=== PATIENT | female | born 1945 | race Caucasian/White ===

== ENCOUNTER 2019-01-22 15:50 | Emergency (ER) | payer MEDICARE ==
--- NOTE | 2019-01-22 16:28 | ED ---
Dizziness - HPI Summary HPI Summary: Pt is a 73 y/o F presenting to the ED with a chief complaint of dizziness. She states that the past two weeks, she has been feeling intermittently lightheaded , dizzy, and nauseous. She describes the lightheadedness as feeling like she is going to pass out. She reports associated cough, vomiting, diaphoresis, sore throat, voice hoarseness, and fatigue. She's unsure if she's had a fever. She denies abd pain, hematuria, or dysuria. Pt's medications reviewed, allergies noted. - History Of Current Complaint Chief Complaint: EDGeneral Stated Complaint: GENERAL ILLNESS/VOMITING PER PT Time Seen by Provider: 01/22/19 16:11 Hx Obtained From: Patient Onset/Duration: Still Present, Gradually Timing: Hours Severity Initially: Moderate Severity Currently: Moderate Character: Lightheaded Aggravating Factor(s): Nothing Alleviating Factor(s): Nothing Associated Signs And Symptoms: Positive: Nausea, Vomiting, Diaphoresis. Negative: Fever - pt is unsure - Allergies/Home Medications Allergies/Adverse Reactions: Allergies Allergy/AdvReac Type Severity Reaction Status Date / Time No Known Allergies Allergy Verified 01/22/19 15:54 Home Medications: Home Medications Carvedilol TAB NF [Coreg TAB NF] 12.5 mg PO DAILY 01/22/19 [History Confirmed ] Losartan/Hydrochlorothiazide [Losartan-Hctz 100-12.5 mg Tab] 1 each PO DAILY [History Confirmed 01/22/19] Simvastatin TAB(NF) [Zocor(NF)] 20 mg PO QPM 01/22/19 [History Confirmed ] amLODIPine TAB* [Norvasc 5 mg TAB*] 10 mg PO DAILY 01/22/19 [History Confirmed 01/22/19] PMH/Surg Hx/FS Hx/Imm Hx Previously Healthy: Yes Endocrine/Hematology History: Reports: Hx Diabetes Cardiovascular History: Reports: Hx Hypertension - Surgical History Surgical History: Yes Surgery Procedure, Year, and Place: hysterectomy, breast CA removal (remission 7yrs), ganglion cyst removal on wrist Infectious Disease History: No Infectious Disease History: Denies: Traveled Outside the [place] in Last 30 Days - Family History Known Family History: Positive: Unknown - pt states "I have no idea" - Social History Alcohol Use: Weekly Hx Substance Use: No Substance Use Type: Reports: None Hx Tobacco Use: Yes Smoking Status (MU): Current Every Day Smoker - smoked 40 yrs Type: Cigarettes Review of Systems Positive: Fatigue, Skin Diaphoresis, Other - voice hoarseness. Negative: Fever - pt unsure Positive: Sore Throat Positive: Cough Positive: Vomiting, Nausea. Negative: Abdominal Pain Negative: dysuria, hematuria Neurological: Other - dizziness, lightheadedness All Other Systems Reviewed And Are Negative: Yes Physical Exam - Summary Physical Exam Summary: Constitutional: Well-developed, Well-nourished, Alert. (-) Distressed Skin: Warm, Dry HENT: Normocephalic; Atraumatic Eyes: Conjunctiva normal Neck: Musculoskeletal ROM normal neck. (-) JVD, (-) Stridor, (-) Tracheal deviation Cardio: Rhythm regular, rate normal, Heart sounds normal; Intact distal pulses; The pedal pulses are 2+ and symmetric. Radial pulses are 2+ and symmetric. (-) Murmur Pulmonary/Chest wall: Effort normal. Mild expiratory wheezes in lower lung bell bilaterally, (-) Respiratory distress Abd: Soft, (-) tenderness, (-) Distension, (-) Guarding, (-) Rebound Musculoskeletal: (-) Edema Lymph: (-) Cervical adenopathy Neuro: Alert, Oriented x3 Psych: Mood and affect Normal Triage Information Reviewed: Yes Vital Signs On Initial Exam: Initial Vitals Temp Pulse Resp BP Pulse Ox 96.7 F 72 16 143/97 97 01/22/19 15:51 01/22/19 15:51 01/22/19 15:51 01/22/19 15:51 01/22/19 15:51 Vital Signs Reviewed: Yes Diagnostics - Vital Signs Vital Signs Temp Pulse Resp BP Pulse Ox 01/22/19 15:51 96.7 F 72 16 143/97 97 - Laboratory Result Diagrams: 01/22/19 16:38 01/22/19 16:38 Lab Statement: Any lab studies that have been ordered have been reviewed, and results considered in the medical decision making process. - Radiology CXR Radiology Interpretation Completed By: Radiologist Summary of Radiographic Findings: Findings consistent with a left suprahilar mass. CT of the chest with IV. contrast is suggested. ED physician has reviewed this report. - CT Chest CT CT Interpretation Completed By: Radiologist Summary of CT Findings: 1. There is significant mediastinal lymphadenopathy and left hilar. lymphadenopathy with the largest lymph node in the AP window measuring 2.7 cm. short axis suspicious for malignant lymphadenopathy until proven otherwise. 2. Contiguous with mediastinal and left hilar lymphadenopathy is a masslike. consolidation in the left upper lobe abutting the left mediastinal border with. this region of abnormality measuring 8.8 x 2.0 x 5.3 cm suspicious for left. upper lobe malignancy until proven otherwise. 3. The mass lesions and lymphadenopathy may be further evaluated by sampling. via bronchoscopy or further evaluation with nuclear medicine PET imaging. 4. There is a small hiatal hernia. 5. There is likely multinodular goiter of the thyroid gland with the largest. heterogeneous nodule measuring 5 cm. May be more accurately assessed with. thyroid gland ultrasound. 6. There is a heterogeneous mass in the left adrenal gland measuring 4.1 x 2.9. cm, cannot exclude adrenal metastasis. 7. There is asymmetric skin thickening involving the right breast and surgical. clips and scarring in the right breast. Breast pathology is more accurately. assessed with mammography. Re-Evaluation - Re-Evaluation First Eval Re-Evaluation Time: 18:30 Change: Improved Comment: Pt was informed of her diagnosis. Her daughter will be called to discuss the next steps. Second Eval Re-Evaluation Time: 19:00 Change: Improved Comment: Pt's daughter requested a brain CT to rule out if the cancer spread to her brain. Third Eval Re-Evaluation Time: 19:45 Change: Unchanged Comment: Unoffical review of brain CT found one possible intercranial mass. Pt advised to stay until after offical report, pt declined and will be discharged home. Dizzy Course/Dx - Course Course Of Treatment: Patient is here with cough, vomiting, chills, laryngitis over the past 2 weeks. Patient has an extensive smoking history and history of breast cancer. Patient a chest x-ray which showed a left mediastinal mass. Patient is CT scan of her chest which showed a left upper lung lobe mass with adenopathy in the mediastinum. Patient also had possible mass in her adrenal gland. This likely represents new diagnosed lung cancer. Patient has had some vomiting as well as a CT scan for her head which showed multiple metastatic masses. Patient had no evidence of herniation and is overall well-appearing. Dr. Leyva was called and will follow-up with patient on Friday at 5 PM. - Diagnoses Provider Diagnoses: Lung mass, Nausea, Brain mass - Provider Notifications Discussed Care Of Patient With: Basilio Leyva Time Discussed With Above Provider: 18:55 Instructed by Provider To: Have Pt Call For Appt. - Dr. Leyva, Oncology, stated that the pt could be discharged home. He requested an appointment with the pt in his main office at 5p Friday01/26/19. Discharge ED - Sign-Out/Discharge Documenting (check all that apply): Patient Departure - discharge Patient Received Moderate/Deep Sedation with Procedure: No - Discharge Plan Condition: Stable Disposition: HOME Prescriptions: Acetaminophen with Codeine [Acetaminophen-Cod #3 Tablet] 1 each PO Q8HR #20 tablet MDD 3 tablets Benzonatate CAP* [Tessalon 100 MG CAP*] 100 mg PO TID #20 cap Ondansetron ODT TAB* [Zofran 4 MG Odt TAB*] 4 mg PO Q8H PRN #20 tab.odt PRN Reason: Vomiting Patient Education Materials: Lung Cancer (DC) Forms: *Work Release Referrals: Delmer Garay MD [Primary Care Provider] - 2 Days Basilio Leyva MD [Medical Doctor] - 01/26/19 5:00 pm Additional Instructions: PLEASE RETURN TO THE EMERGENCY DEPARTMENT FOR ANY NEW OR WORSENING SYMPTOMS. TAKE THE PRESCRIBED MEDICATIONS DIRECTED. FOLLOW UP WITH YOUR PRIMARY CARE PHYSICIAN IN 1-3 DAYS AND FOLLOW UP WITH DR. LEYVA, ONCOLOGY, AT [facility] Friday01/26/19. - Billing Disposition and Condition Condition: STABLE Disposition: Home - Attestation Statements Document Initiated by Emma: Yes Documenting Scribe: Amilcar Reid Provider For Whom Emma is Documenting (Include Credential): Josemanuel Wong MD. Scribe Attestation: Meena Lee Marco DiSanto, scribed for Josemanuel Wong MD. on 01/22/19 at 1999. Scribe Documentation Reviewed: Yes Provider Attestation: The documentation as recorded by the scribe, Amilcar Reid accurately reflects the service I personally performed and the decisions made by Josemanuel hyatt MD. Status of Scribe Document: Viewed
[2019-01-22 16:47] LABS: ABS Eosinophils 0.1 10^3/ul (0-0.6); ABS Lymphocytes 0.9 10^3/ul (1.0-4.8); ABS Monocytes 0.6 10^3/ul (0-0.8); ABS Neutrophils 5.3 10^3/ul (1.5-7.7); Eosinophil % 1.2 %; Hematocrit 40 % (35-47); Hemoglobin 13.8 g/dL (12.0-16.0); Lymphocyte % 12.9 %; Mean Corpuscular HGB Conc 34 g/dL (31-36); Mean Corpuscular Hemoglobin 32 pg (27-31); Mean Corpuscular Volume 93 fL (80-97); Mean Platelet Volume 8.8 fL (7.4-10.4); Platelet Count 256 10^3/uL (150-450); Red Blood Count 4.33 10^6 /uL (3.70-4.87); Red Cell Distribution Width 12 % (10-15); White Blood Count 6.9 10^3/uL (3.5-10.8)
[2019-01-22 17:05] LABS: Albumin 3.7 g/dL (3.2-5.2); Albumin/Globulin Ratio 1.2 (1-3); BUN/Creatinine Ratio 12.1 (8-20); Calcium 9.5 mg/dL (8.6-10.3); EGFR African American 73.7 (>60); EGFR Non-African American 60.9 (>60); Globulin 3.2 g/dL (2-4); Potassium 3.4 mmol/L (3.5-5.0); Total Bilirubin 0.3 mg/dL (0.2-1.0); Total Protein 6.9 g/dL (6.4-8.9)
[2019-01-22] MEDS ORDERED: Iodixanol* (CONTRAST) 320 MG/ML 100 ML SDV IV ONE (18:01)
[2019-01-22 19:57] VITALS: BP 157/80
== END 2019-01-22 19:57 | disposition home or self-care (01) ==
LOC: ED 15:50
DX: R91.1 Solitary pulmonary nodule (principal); R11.0 Nausea; G93.9 Disorder of brain, unspecified; Z85.3 Personal history of malignant neoplasm of breast; E11.9 Type 2 diabetes mellitus without complications; I10 Essential (primary) hypertension; F17.210 Nicotine dependence, cigarettes, uncomplicated; Z79.899 Other long term (current) drug therapy
CPT/HCPCS: 36415; 70450; 71046; 71260; 80053; 83036; 83690; 84484; 85025; 86618; 99283; Q9967

== ENCOUNTER → 2019-02-03 | Day surgery (SDC) | payer MEDICARE ==
[~2019-02-03] MED LIST: Benzocaine/Butamben/Tetracain (CETACAINE - SINGLE USE) 5 gm TOPICAL ONE; Buffered Lidocaine 1% SYRIN* 1 ML/SYRINGE INTRADERM ONE; Dextrose 50% VIAL 50 ml IV PUSH PRN; Famotidine IV* 10 MG/ML 2 ML (20 mg) IV ONE; Famotidine IV* 10 MG/ML 2 ML (20 mg) ONE; Insulin LISPRO* 1 UNITS UNIT SUBCUT ONE; Insulin REGULAR(*) 1 UNITS UNIT ONE; Lactated Ringers 1000 ML Bag* 1,000 ML IV SCH; Lidocaine 2% PF * 5 ML VIAL ONE; Ondansetron INJ* 2 MG/ML VIAL ONE; Rocuronium* 10 MG/ML VIAL ONE; Succinylcholine* 20 MG/ML 10 ML VIAL ONE; Sugammadex * 500 MG/5 ML VIAL IV PUSH ONE
[2019-02-03 14:00] LABS: BUN/Creatinine Ratio 44.1 (8-20); Calcium 8.5 mg/dL (8.6-10.3); EGFR African American 71.9 (>60); EGFR Non-African American 59.4 (>60); Potassium 4.2 mmol/L (3.5-5.0)
--- NOTE | 2019-02-03 15:16 | BRIEFOPN ---
Brief Operative/Procedure Note - Operation Details Pre-Op Diagnosis: Lung mass, lymphadenopathy Post-Op Diagnosis: Lung cancer Procedures: Bronchoscopy/EBUS Surgeon(s)/Proceduralists: ines Wallace Anesthesia: General anesthesia Estimated Blood Loss: None Findings: Endobronchial lesion on left side, lymphadenopathy. R4 and station 7 were sampled and CLIFF suggestive of malignancy Specimen(s)/Culture(s) Description: FNA sent for cytology and air-dry smears sent with cytology actuarial technician for further stains Complications: None
--- NOTE | 2019-02-03 15:44 | PRO ---
BRONCHOSCOPY REPORT: DATE OF PROCEDURE: 02/03/19 - [facility] PREPROCEDURAL DIAGNOSES: 1. Lung mass. 2. Mediastinal and hilar nodes. 3. Brain lesions. POSTPROCEDURAL DIAGNOSIS: Lung cancer. ANESTHESIA: General anesthesia. ANESTHESIOLOGIST: Dr. Leo. DESCRIPTION OF PROCEDURE: Informed consent was obtained from the patient prior to the procedure after all the risks and benefits were thoroughly explained. The patient recently was in the emergency room for evaluation of dizziness, was found to have brain lesions. She was started on dexamethasone. The patient had supraclavicular lymph node biopsy through ultrasound guidance, which was nondiagnostic. Appropriate time-out was agreed on by attending staff prior to the procedure. The patient was intubated with size 8.5 endotracheal tube. A flexible Olympus bronchoscope was inserted through ET tube for airway inspection. Thick secretions were noted in the trachea and bronchi and were suctioned out. No endobronchial lesions noted on the right side. All the airways were patent. The patient noted to have narrowing of the left mainstem bronchus with mucosal irregularity. The patient with narrowing from extrinsic compression. No obvious endobronchial lesions were noted; however, there was definitely mucosal irregularity leading up from mainstem bronchus on the left side to left upper lobe bronchi. Area was bleeding with minimal suction. Bronchoscope was then withdrawn and EBUS bronchoscope was inserted. Station R4 was enlarged and was accessed with three passes. Rapid on-site evaluation revealed malignant cells. Station 7 was then accessed with two passes. Rapid on-site evaluation revealed malignant cells. Rest of the specimen was placed in CytoLyt. The patient tolerated the procedure well. The patient was extubated and seen in Recovery in optimal condition. [id number]/[facility] #: [id number] [facility]
[2019-02-03 15:59] VITALS: BP 145/74
== END | disposition home or self-care (01) ==
LOC: OR 10:59
PROVIDERS: ATTEND Internal Medicine
DX: C34.92 Malignant neoplasm of unspecified part of left bronchus or lung (principal); C77.1 Secondary and unspecified malignant neoplasm of intrathoracic lymph nodes; C79.31 Secondary malignant neoplasm of brain; Z72.0 Tobacco use; E11.9 Type 2 diabetes mellitus without complications; Z79.84 Long term (current) use of oral hypoglycemic drugs; Z85.3 Personal history of malignant neoplasm of breast; Z85.41 Personal history of malignant neoplasm of cervix uteri; I10 Essential (primary) hypertension; E78.5 Hyperlipidemia, unspecified
CPT/HCPCS: 36415; 80048; 88172; 88173; 88305; 88341; 88342; 88360; J0330; J1815; J2405

== ENCOUNTER 2019-02-18 03:21 | Inpatient (IN) | payer MEDICARE ==
--- OUTSIDE RECORDS SUMMARY | 2019-02-18 03:48 | XMS REPORT | Continuity of Care Document ---
:1945 External Reference #:[id number] Author Name Olesya Wallace MD (transmitted by agent of provider Akiko Joseph) Address [address], [address] [place] [address] Care Team Providers Name Role Phone Basilio Leyva M.D. - Hematology & Care Team Information Patient Educator [phone] Oncology Problems Description No Information Available Social History Type Date Description Comments Sex Unknown Tobacco Use Start: Unknown Patient is a current cigarette smoker, smokes every day Tobacco Use Start: Unknown currently smokes 1/2 Pack Daily to 1 pack Cigarette Use Pack Years - 40 on & off Smoking Status Reviewed: 01/28/19 currently smokes 1/2 Pack Daily to 1 pack Tobacco Use Start: Unknown Patient is a current smoker, smokes every day Allergies, Adverse Reactions, Alerts Active Allergies Reaction Severity Comments Date None 01/28/2019 Medications Active Medications SIG Qnty Indications Ordering Provider Date Acetaminophen-Codeine Unknown #3 300-30mg Tablets Benzonatate Take One Capsule Unknown 100mg 3 Times A Day as Capsules Needed For Cough Ondansetron Unknown 4mg Tablets Dispers Simvastatin Take 1 Tablet By Unknown 20mg Tablets Mouth Every Day In The Evening Losartan Take 1 Tablet By Unknown Potassium/Hydrochlorot Mouth Every Day hiazide 100-12.5mg Tablets Carvedilol Take 1 Tablet By Unknown 12.5mg Tablets Mouth Twice A Day With Food Amlodipine Besylate Take 1 Tablet By Unknown 10mg Mouth Every Day Tablets Immunizations Description No Information Available Vital Signs Date Vital Result Comment 01/28/2019 11:02am Height 62 inches 5'2" Weight 179.00 lb Heart Rate 80 /min BP Systolic Sitting 130 mmHg BP Diastolic Sitting 86 mmHg O2 % BldC Oximetry 97 % BMI (Body Mass Index) 32.7 kg/m2 Results Description No Information Available Procedures Description No Information Available Medical Devices Description No Information Available Encounters Type Date Location Provider Dx Diagnosis Office Visit 01/28/2019 [facility] Tab[facility] Other disorders 11:30a [facility] F17.210 Nicotine dependence, cigarettes, uncomplicated R59.0 Localized enlarged lymph nodes Assessments Date Code Description Provider 01/28/2019 [facility] Other disorders of lung Olesya Wallace MD 01/28/2019 F17.210 Nicotine dependence, cigarettes, uncomplicated Olesya Wallace MD 01/28/2019 R59.0 Localized enlarged lymph nodes Olesya Wallace MD Plan of Treatment Future Appointment(s):01/29/2019 11:00 am - Olesya Wallace MD at [facility]01/28/2019 - Olesya Wallace MDJ98.4 Other disorders of lungF17.210 Nicotine dependence, cigarettes, [id number] Localized enlarged lymph nodesNew [place]rays:[place] [id number], Ordered : 01/28/19US Soft Tissue Head Or Neck, Ordered: 01/28/19 Functional Status Description No Information Available Mental Status Description No Information Available Referrals Description No Information Available
[2019-02-18] MEDS ORDERED: NS 0.9% 1000 ML** 1,000 ML IV ONE (03:54)
[2019-02-18 04:32] LABS: INR 1.39 (0.82-1.09)
[2019-02-18 04:38] LABS: Hematocrit 32 % (35-47); Hemoglobin 10.8 g/dL (12.0-16.0); Mean Corpuscular HGB Conc 34 g/dL (31-36); Mean Corpuscular Hemoglobin 31 pg (27-31); Mean Corpuscular Volume 92 fL (80-97); Red Blood Count 3.47 10^6 /uL (3.70-4.87); Red Cell Distribution Width 13 % (10-15); White Blood Count 0.1 10^3/uL (3.5-10.8)
[2019-02-18 04:40] LABS: ALT 16 U/L (7-52); AST 15 U/L (13-39); Albumin 2.6 g/dL (3.2-5.2); Albumin/Globulin Ratio 1.2 (1-3); Alkaline Phosphatase 37 U/L (34-104); Anion Gap 6 mmol/L (2-11); BUN/Creatinine Ratio 38.8 (8-20); Blood Urea Nitrogen 31 mg/dL (6-24); C Reactive Protein 314.39 mg/L (<8.01); CO2 Carbon Dioxide 20 mmol/L (22-32); Calcium 7.4 mg/dL (8.6-10.3); Chloride 107 mmol/L (101-111); EGFR African American 85.6 (>60); EGFR Non-African American 70.7 (>60); Globulin 2.1 g/dL (2-4); Glucose 97 mg/dL (70-100); Sodium 133 mmol/L (135-145); Total Protein 4.7 g/dL (6.4-8.9)
[2019-02-18 04:46] LABS: Troponin I 0.04 ng/mL (<0.04)
[2019-02-18 05:12] LABS: TSH (Thyroid Stimulating Horm) 0.02 mcIU/mL (0.34-5.60)
--- NOTE | 2019-02-18 05:43 | ED ---
Neurological HPI - HPI Summary HPI Summary: Pt is a 73 y/o F presenting to the ED for a chief complaint of generalized weakness. Pts daughter is a nurse and was concerned about pts generalized weakness and possible pneumonia after having a fever of 101 F that began . Daughter also reports that the patient had a wet cough. However, the patient denies this. The pt started chemotherapy and radiation therapy on for a diagnosis of brain and lung cancer made on 01/22/19. Pts daughter states she has weakness since 02/13/19 after falling after which the pt could not go from a sitting to a standing position without help and could walk 20-30 ft with help. Pts daughter states pt has diarrhea, difficulty swallowing, difficulty ambulating, pitting edema in the left lower extremity, sleeping 20 hrs a day. On 02/17/19, pt could not be in sitting position. Pt denies nausea, vomiting, or abdominal pain. Pt has a PMHx of Type II diabetes mellitus. Pt denies taking any medications for her symptoms. - History of Current Complaint Chief Complaint: EDWeakness Stated Complaint: WEAKNESS PER EMSE Time Seen by Provider: 02/18/19 03:23 Hx Obtained From: Patient, Family/Md Ophthalmologist - Daughter Onset/Duration: Sudden Onset - As per pt's daughter, Started days ago, Still Present Timing: Sudden Onset Onset Severity: Moderate Current Severity: Moderate Neurological Deficit Location: Generalized Pain Intensity: 0 Pain Scale Used: 0-10 Numeric Aggravating: Nothing Alleviating: Nothing Associated Signs and Symptoms: Positive: Weakness - generalized, Fever - 101 F, in vitals, 99.4 F, Diarrhea. Negative: Pain - Negative abdominal pain, Nausea/ Vomiting Related Hx: Recent Illness - Lung and brain cancer diagnosed 01/22/19. - Allergy/Home Medications Allergies/Adverse Reactions: Allergies Allergy/AdvReac Type Severity Reaction Status Date / Time No Known Allergies Allergy Verified 02/18/19 03:56 Home Medications: Home Medications Insulin Glargine,Hum.rec.anlog [Lantus Solostar 5x3 ML PENS] 20 units SUBCUT BEDTIME 02/18/19 [History Confirmed 02/18/19] PMH/Surg Hx/FS Hx/Imm Hx Previously Healthy: Yes Endocrine/Hematology History: Reports: Hx Diabetes - Type II Cardiovascular History: Reports: Hx Hypertension Denies: Hx Pacemaker/ICD Sensory History: Reports: Hx Contacts or Glasses - glasses Denies: Hx Hearing Aid Opthamlomology History: Reports: Hx Contacts or Glasses - glasses Neurological History: Reports: Hx Headaches Psychiatric History: Denies: Hx Panic Disorder - Cancer History Cancer Type, Location and Year: breast. Lung and brain cancer diagnosed on . Date and Location of Last Treatment: Chemotherapy and radiation therapy on 02/10. Hx Chemotherapy: Yes - 02/10/19 Hx Radiation Therapy: Yes - 02/10/19 - Surgical History Surgery Procedure, Year, and Place: hysterectomy, breast CA removal (remission 7yrs), ganglion cyst removal on wrist Hx Anesthesia Reactions: No Infectious Disease History: No Infectious Disease History: Denies: Traveled Outside the [place] in Last 30 Days - Family History Known Family History: Negative: Diabetes - Social History Alcohol Use: Weekly Alcohol Amount: couple glasses a day Hx Substance Use: No Substance Use Type: Reports: None Hx Tobacco Use: Yes Smoking Status (MU): Current Every Day Smoker Type: Cigarettes Amount Used/How Often: 1/2ppd 50 years on and off Review of Systems - ROS Summary Review of Systems Summary: Insulin Glargine,Hum.rec.anlog [Lantus Solostar 5x3 ML PENS] 20 units SUBCUT BEDTIME 02/18/19 [History Confirmed 02/18/19] Constitutional: Other - generalized weakness and sleeping 20 hrs daily Positive: Fever - 101 F, in vitals, 99.4 F ENT: Other - positive - difficulty swallowing Positive: Cough Positive: Diarrhea. Negative: Abdominal Pain, Vomiting, Nausea Positive: Decreased ROM - Difficulty ambulating, per daughter, Edema - Pitting edema in LLE, per daughter Positive: Other - Sleeps 20 hrs a day All Other Systems Reviewed And Are Negative: Yes Physical Exam - Summary Physical Exam Summary: General: Well-developed, Well-nourished FEMALE No acute distress. HEENT: Normocephalic, Atraumatic. Eyes: Conjuctiva normal, PERRL. Ears: TMs within normal limits. Nares: (-) discharge, (-) erythema. Oropharynx: Clear, mucous membranes moist, (-) exudates. Neck: Soft, FROM, (-) lymphadenopathy, (-) thyromegaly, (-) JVD. Cardiovascular: Normal sinus rhythm, (-) murmur. Lungs: (-) wheezes, (-) rales. Right lower lobe rhonchi. Abdomen: Soft, non-tender, non-distended, (-) organomegaly, normal bowel sounds. Back: (-) CVA tenderness Extremities: No edema. Skin: Warm, dry, (-) rash. Neuro: Alert and oriented x3, no focal deficits. Psychiatric: Mood normal, affect normal. Triage Information Reviewed: Yes Vital Signs On Initial Exam: Initial Vitals Temp Pulse Resp BP Pulse Ox 99.4 F 102 17 146/79 95 02/18/19 03:31 02/18/19 03:31 02/18/19 03:31 02/18/19 03:31 02/18/19 03:31 Vital Signs Reviewed: Yes Diagnostics - Vital Signs Vital Signs Temp Pulse Resp BP Pulse Ox 02/18/19 04:34 90 24 135/66 95 02/18/19 04:04 97 17 128/72 94 02/18/19 04:00 96 24 94 02/18/19 03:34 16 146/79 02/18/19 03:31 99.4 F 102 17 146/79 95 - Laboratory Lab Results: Lab Results 02/18/19 02/18/19 02/18/19 Range/Units 04:14 04:14 04:14 WBC 0.1 L (3.5-10.8) 10^3/uL RBC 3.47 L (3.70-4.87) 10^6 /uL Hgb 10.8 L (12.0-16.0) g/dL Hct 32 L (35-47) % MCV 92 (80-97) fL MCH 31 (27-31) pg MCHC 34 (31-36) g/dL RDW 13 (10-15) % Plt Count Pending MPV Pending Neut % (Auto) Pending Lymph % (Auto) Pending [place] % (Auto) Pending Eos % (Auto) Pending Baso % (Auto) Pending Absolute Neuts (auto) Pending Absolute Lymphs (auto) Pending Absolute Monos (auto) Pending Absolute Eos (auto) Pending Absolute Basos (auto) Pending Absolute Nucleated RBC Pending Nucleated RBC % Pending INR (Anticoag Therapy) 1.39 H (0.82-1.09) Sodium 133 L (135-145) mmol/L Potassium 4.0 (3.5-5.0) mmol/L Chloride 107 (101-111) mmol/L Carbon Dioxide 20 L (22-32) mmol/L Anion Gap 6 (2-11) mmol/L BUN 31 H (6-24) mg/dL Creatinine 0.80 (0.51-0.95) mg/dL Est GFR ( Amer) 85.6 (>60) Est GFR (Non-Af Amer) 70.7 (>60) BUN/Creatinine Ratio 38.8 H (8-20) Glucose 97 (70-100) mg/dL Lactic Acid (0.5-2.0) mmol/L Calcium 7.4 L (8.6-10.3) mg/dL Magnesium 2.0 (1.9-2.7) mg/dL Total Bilirubin 0.40 (0.2-1.0) mg/dL AST 15 (13-39) U/L ALT 16 (7-52) U/L Alkaline Phosphatase 37 (34-104) U/L Troponin I 0.04 H* (<0.04) ng/mL C-Reactive Protein 314.39 H (<8.01) mg/L Total Protein 4.7 L (6.4-8.9) g/dL Albumin 2.6 L (3.2-5.2) g/dL Globulin 2.1 (2-4) g/dL Albumin/Globulin Ratio 1.2 (1-3) TSH 0.02 L (0.34-5.60) mcIU/mL 02/18/19 Range/Units 04:14 WBC (3.5-10.8) 10^3/uL RBC (3.70-4.87) 10^6 /uL Hgb (12.0-16.0) g/dL Hct (35-47) % MCV (80-97) fL MCH (27-31) pg MCHC (31-36) g/dL RDW (10-15) % Plt Count MPV Neut % (Auto) Lymph % (Auto) [place] % (Auto) Eos % (Auto) Baso % (Auto) Absolute Neuts (auto) Absolute Lymphs (auto) Absolute Monos (auto) Absolute Eos (auto) Absolute Basos (auto) Absolute Nucleated RBC Nucleated RBC % INR (Anticoag Therapy) (0.82-1.09) Sodium (135-145) mmol/L Potassium (3.5-5.0) mmol/L Chloride (101-111) mmol/L Carbon Dioxide (22-32) mmol/L Anion Gap (2-11) mmol/L BUN (6-24) mg/dL Creatinine (0.51-0.95) mg/dL Est GFR ( Amer) (>60) Est GFR (Non-Af Amer) (>60) BUN/Creatinine Ratio (8-20) Glucose (70-100) mg/dL Lactic Acid 0.9 (0.5-2.0) mmol/L Calcium (8.6-10.3) mg/dL Magnesium (1.9-2.7) mg/dL Total Bilirubin (0.2-1.0) mg/dL AST (13-39) U/L ALT (7-52) U/L Alkaline Phosphatase (34-104) U/L Troponin I (<0.04) ng/mL C-Reactive Protein (<8.01) mg/L Total Protein (6.4-8.9) g/dL Albumin (3.2-5.2) g/dL Globulin (2-4) g/dL Albumin/Globulin Ratio (1-3) TSH (0.34-5.60) mcIU/mL Result Diagrams: 02/18/19 15:43 02/18/19 13:57 Lab Statement: Any lab studies that have been ordered have been reviewed, and results considered in the medical decision making process. - Radiology CXR Radiology Interpretation Completed By: ED Physician Summary of Radiographic Findings: Chest x-ray impression: negative. Reviewed by ED physician, pending official radiology report. Chest Radiology Interpretation Completed By: ED Physician Summary of Radiographic Findings: Chest x-ray impression: negative. Reviewed by ED physician, pending official radiology report. - EKG 0402 Cardiac Rate: NL - rate of 96 BPM EKG Rhythm: Sinus Rhythm Summary of EKG Findings: EKG showed NSR with rate of 96 BPM, no STEMI. ED physician has reviewed and interpreted this EKG. Course/Dx - Course Course Of Treatment: Pt is a 73 y/o F presenting to the ED for a chief complaint of generalized weakness. Pts daughter is a nurse and was concerned about pts generalized weakness and possible pneumonia after having a fever of 101 F that began 02/17/19. Daughter also reports that the patient had a wet cough. However, the patient denies this. The pt started chemotherapy and radiation therapy on 02/10/19 for a diagnosis of brain and lung cancer made on 01/22/19. Pts daughter states she has weakness since 02/13/19 after falling after which the pt could not go from a sitting to a standing position without help and could walk 20-30 ft with help. Pts daughter states pt has diarrhea, difficulty swallowing, difficulty ambulating, pitting edema in the left lower extremity, sleeping 20 hrs a day. On 02/17/19, pt could not be in sitting position. Pt denies nausea, vomiting, or abdominal pain. Pt has a PMHx of Type II diabetes mellitus. Pt denies taking any medications for her symptoms. Laboratory abnormal findings: WBC 0.1, RBC 3.47, Hbg 10.8, Hct 32, INR 1.39, sodium 133, carbon dioxide 20, BUN 31, BUN/Creatinine Ratio 38.8, calcium 7.4, troponin I 0.04, c-reactive protein 314.39, total protein 4.7, albumin 2.6, and TSH 0.02. Chest x-ray, negative. Reviewed by ED physician pending official radiology report. EKG at 04:02 reveals 96 BPM with sinus rhythm, no STEMI. Reviewed and interpreted by Dr. Jama. At 05:26, spoke to Dr. Starr who will be admitting the pt with a diagnosis of weakness, elevated troponin, and neutropenia. - Diagnoses Provider Diagnoses: Weakness, Neutropenia, Elevated troponin - Physician Notifications Discussed Care Of Patient With: Gisella Starr Time Discussed With Above Provider: 05:26 Instructed by Provider To: Other - At 05:26, spoke to Dr. Starr who will be admitting the pt Discharge ED - Sign-Out/Discharge Documenting (check all that apply): Patient Departure - Admit Patient Received Moderate/Deep Sedation with Procedure: No - Discharge Plan Condition: Stable Disposition: ADMITTED TO [facility] - Billing Disposition and Condition Condition: STABLE Disposition: Admitted to [facility] - Attestation Statements Document Initiated by Scribe: Yes Documenting Scribe: Scottie Hankins Provider For Whom Scribe is Documenting (Include Credential): Amita Jama MD. Scribe Attestation: I, Scottie Hankins, scribed for Amita Jama MD. on 02/19/19 at 0037. Scribe Documentation Reviewed: Yes Provider Attestation: The documentation as recorded by the scribe, Scottie Hankins accurately reflects the service I personally performed and the decisions made by me, Amita Jama MD. Status of Scribe Document: Viewed
[2019-02-18 05:55] LABS: Urine Appearance Clear; Urine Bacteria Absent (Absent); Urine Bilirubin Negative (Negative); Urine Blood 2+ (Negative); Urine Color Amber; Urine Glucose Negative (Negative); Urine Ketones Negative (Negative); Urine Nitrite Negative (Negative); Urine Protein 2+(100 mg/dL) (Negative); Urine Red Blood Cell Trace(0-2/hpf) (Absent); Urine Specific Gravity 1.025 (1.010-1.030); Urine Squamous Epithelial Cell Present (Absent); Urine Urobilinogen Negative (Negative); Urine White Blood Cell Absent (Absent)
[2019-02-18 06:07] LABS: Mean Platelet Volume 8.7 fL (7.4-10.4); Platelet Count 24 10^3/uL (150-450)
[2019-02-18] MEDS ORDERED: Dextrose 50% VIAL 50 ml IV PUSH PRN (06:19)
[2019-02-18] MEDS ORDERED: Benzonatate CAP* 100 MG PO PRN (06:19)
[2019-02-18] MEDS ORDERED: Ondansetron INJ* 2 MG/ML VIAL IV PRN (06:36)
[2019-02-18] MEDS: NS 0.9% 1000 ML** 1,000 ML IV SCH ×2 (06:55→20:00)
[2019-02-18] MEDS ORDERED: Cefepime 2 GM in Dextrose(*) 2 GM/50 ML BAG IV SCH ×2 (07:00→18:00)
[2019-02-18] MEDS ORDERED: Cefepime 2 GM in Dextrose(*) 2 GM/50 ML BAG IV ONE (07:00)
[2019-02-18 07:08] LABS: Free T4 1.44 ng/dL (0.61-1.12)
[2019-02-18] MEDS: Acetaminophen TAB* 325 MG PO PRN (08:02)
[2019-02-18] MEDS: Insulin LISPRO* 1 UNITS UNIT SUBCUT SCH ×4 (08:44→21:37)
[2019-02-18] MEDS: Dexamethasone TAB* 4 MG PO SCH ×2 (09:24→19:32)
[2019-02-18 10:04] LABS: Troponin I 0.06 ng/mL (<0.04)
--- NOTE | 2019-02-18 10:06 | HP ---
CC: Dr. Garay; Dr. Leyva. * HISTORY AND PHYSICAL: DATE OF ADMISSION: 02/18/19 PRIMARY CARE PROVIDER: Dr. Garay in [place]. ONCOLOGIST: Dr. Leyva. CHIEF COMPLAINT: Weakness. HISTORY OF PRESENT ILLNESS: Ms. Sandoval is a 73-year-old who was recently diagnosed with metastatic lung cancer, who underwent gamma knife treatment to 8 brain lesions this past 02/16/19. She began chemotherapy and received doses on Friday, , Friday last week that was , , and . The patient's daughter is a registered nurse and has been caring for her mom recently. She notes that the patient has become much more weak over the last 1 week. The patient has gone from being able to ambulate with a little-bit of difficulty to being unable to sit up in bed on her own. The patient's daughter is having a very hard time getting the patient transferred. The patient woke up on the morning of admission with complaints of her right leg being numb. She states that she thinks she slept on the leg the wrong way. At that time, her temperature was checked and she had a fever of 101. She may have had a fever earlier on 02/17/19; however, they did not check her temperature at that point. The patient has had very poor appetite over the last several days. She chokes with anytime she takes anything in by mouth. She has been coughing, but this is mostly positional. It is mostly while she is lying flat. She denies any shortness of breath as she states that she is not being active at all. The patient has had nausea and she has had significant diarrhea. She describes this as charcoal-colored liquid stools. The patient has not been on any antibiotics recently. She denies any dysuria. She does note that her vision has been blurry. She feels that the right side of her body, mainly the right leg is weaker than the left. Also of note Friday morning, 02/17/19, the patient's blood sugar was very low at 29. The patient had been off her metformin until she was started on high -dose dexamethasone. With the introduction of the high-dose dexamethasone her blood sugars have been in the 400 to 500 range. She restarted her metformin and her Lantus. As the blood sugar was so low on the morning of 02/17/19, her daughter held metformin and Lantus. They had a difficult time getting the blood sugar over 70 yesterday. PAST MEDICAL HISTORY/PAST SURGICAL HISTORY: 1. Breast cancer status post lumpectomy and radiation therapy. 2. Cervical cancer status post hysterectomy. 3. Hypertension. 4. Dyslipidemia. 5. Type 2 diabetes. 6. Metastatic lung cancer with mets to the brain. 7. Tonsillectomy. MEDICATIONS: 1. Lantus 20 units subcutaneous q.h.s. 2. Amlodipine 10 mg p.o. daily. 3. Simvastatin 20 mg p.o. q.h.s. 4. Zofran ODT 4 mg p.o. q.8 hours p.r.n. nausea. 5. Dexamethasone 8 mg p.o. q. a.m., 4 mg p.o. q. p.m. x2 days, and 4 mg p.o. b.i.d. 6. Tessalon 100 mg p.o. t.i.d. 7. Tylenol with codeine 1 tab p.o. q.8 hours. ALLERGIES: No known drug allergies. FAMILY HISTORY: Mom at the age of 76 with uterine cancer. Dad at the age of 86 of an [place]. SOCIAL HISTORY: The patient was smoking one-half to 1 pack per day up until a couple of weeks ago, then smoking a couple of cigarettes a day up until this past Friday. She smoked for approximately 40 years. She does not drink alcohol. 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 She is currently living with her daughter. She is . She has 2 children. Her daughter Angie is her healthcare proxy. REVIEW OF SYSTEMS: The patient admits to fevers, anorexia. No chest pain. She has had pitting edema of the bilateral ankles, left being worse than the right. She admits to cough as noted above. No shortness of breath. She admits to nausea and diarrhea. No abdominal pain. No darryl blood in the stool, though again her stools have been charcoal colored. She denies any hematuria, no dysuria. As above she feels that her right leg is weaker than the left. She has blurry vision. She has been chocking on her food. She does complain of pain in the right knee. There are no rashes. She does admit to anxiety. PHYSICAL EXAMINATION GENERAL: The patient is a well-developed, elderly female seen lying flat in the stretcher in no acute distress. VITAL SIGNS: Blood pressure 132/52, pulse 97, respirations 27, temp 99.4, O2 saturation 90% on room air. HEENT: Pupils are approximately 2 mm. Extraocular muscles are intact. Oropharynx is clear. Oral mucosa is moist. The patient has very foul smelling breath. PULMONARY: The patient has coarse breath sounds throughout but no focal findings on her pulmonary exam. CARDIAC: Normal S1, S2. Heart rate is mildly tachycardic. It is regular. There is 1 to 2+ bilateral lower extremity pitting edema. The edema is worse in the ankles. ABDOMEN: Bowel sounds are present. Abdomen is soft, nontender, and nondistended. MUSCULOSKELETAL: The patient moves all 4 extremities symmetrically. There is no cyanosis or clubbing in the digits. SKIN: There is some mild chafing in the groin. Per the patient's daughter the patient has been incontinent of stool and because of this has been using a Depends. NEUROLOGIC: Cranial nerves II through XII appear to be grossly intact. Sensation is intact to light touch throughout. Strength appears to be symmetric in all 4 limbs. PSYCH: The patient is alert, she is oriented x3. Affect appears appropriate. DIAGNOSTIC STUDIES/LAB DATA: WBC 0.1, hemoglobin 10.8, hematocrit 32, platelets 24, ANC 0. INR 1.39. Sodium 133, potassium 4.0, chloride 107, CO2 of 20, BUN 31, creatinine 0.8, glucose 97, lactic acid 0.9. Calcium 7.4, magnesium 2.0. Bilirubin 0.4, AST 15, ALT 16, alk phos 37. Troponin 0.04. CRP 314.39. Albumin 2.6. TSH 0.02. Urinalysis reveals clear urine with specific gravity of 1.025, 2+ protein, 2+ blood, and positive for squamous epithelial cells. EKG reveals normal sinus rhythm. There is minimal ST depression in the anterior leads. No old EKG to compare to. Chest x-ray to my interpretation appears clear without focal infiltrates. ASSESSMENT AND PLAN: Ms. Sadnoval is a 73-year-old female recently diagnosed with metastatic lung cancer who began chemotherapy last week and received gamma knife treatment to 8 brain lesions this past Friday, who presents to the emergency room with progressive weakness and fever. 1. Febrile neutropenia. At this point the patient describes having a fever of 101 at home. Her ANC is 0. She does not give any clear history of a source of infection, though I am concerned about the choking that has been going on and perhaps she could have an aspiration pneumonia. She will be started on cefepime 2 g IV q.12 hours. The patient has been having significant diarrhea and she has been incontinent of stool. I suspect that is chemo related. I have ordered a C. diff study and stool culture. Additionally, I will send off blood cultures. Her ANC will need to be followed. 2. Pancytopenia. I suspect this is chemotherapy induced pancytopenia. Her hemoglobin has dropped approximately two points in the last approximately 2 weeks. She is severely leukopenic and severely thrombocytopenic. Management and transfusion will be at the discretion of Oncology. 3. Black stool. The patient reports having charcoal-colored diarrhea. I have ordered a stool occult blood. Her hemoglobin will need to be followed closely. She did drop 2 points as above. However, I suspect that is more likely related to chemotherapy. 4. Weakness. I suspect the patient's weakness is multifactorial from recently receiving chemotherapy, ongoing diarrhea, and likely mild dehydration as well as recent gamma-knife treatment of 8 brain lesions. The patient will be admitted to the hospital for treatment of febrile neutropenia and during this hospitalization she can work with PT. The patient's daughter is a nurse and it has gotten to the point where she is now having a difficult time taking care of her mom. We will monitor for improvement in symptoms. I do not think she needs any new brain imaging as her exam is nonfocal. 5. Hypoglycemia. The patient was severely hypoglycemic with the blood sugar of 29 yesterday morning. For now I am going to hold on the Lantus and metformin that she had been taking at home. We will place her just on the lispro sliding scale. It is surprising that she became so hypoglycemic in the setting of high-dose dexamethasone. This will need to be monitored closely. 6. Elevated troponin. The patient's troponin is mildly elevated at 0.04. I suspect this is secondary to demand ischemia. Followup troponin has been ordered for 7:15 a.m. Her EKG will also be repeated at that time. 7. Hyperlipidemia. We will continue statin. 8. Hypertension. The patient's blood pressures have been adequate. I am going to hold her amlodipine for now. If her blood pressures remain elevated this could be resumed. 9. DVT prophylaxis. According to the Adult Thrombosis Prophylaxis Risk Factor Assessment Guide the patient has a total risk factor score of 6 making her the highest risk. She will have SCDs alone for DVT prophylaxis as her platelet count is only 24,000. 10. Code status is full. TIME SPENT: Sixty five minutes was spent admitting this patient. [id number]/CPS #: [id number] MANJEET
[2019-02-18] MEDS ORDERED: Pantoprazole IV* 40 MG IV SCH (11:00)
--- NOTE | 2019-02-18 12:30 | PN ---
Progress Note - Progress Note Date of Service: 02/18/19 SOAP: Subjective: [Edwige was admitted overnight with neutropenic fever with several days of weakness and cough with a fever measured at home yesterday. She s/p gammaknife 02/16. CXR shows no infiltrate. This morning she is very fatigued, but denies CP, SOB, abd pain, n/v.] Objective: [ Vital Signs: Temp Pulse Resp BP Pulse Ox 102.6 F 95 22 154/83 90 02/18/19 08:08 02/18/19 08:08 02/18/19 08:08 02/18/19 08:08 02/18/19 08:08 Acetaminophen (Tylenol Tab*) 650 mg PO Q4H PRN PRN Reason: MILD PAIN or TEMP > 100.4 Last Admin: 02/18/19 08:02 Dose: 650 mg Atorvastatin Calcium (Lipitor*) 10 mg PO BEDTIME [facility] Benzonatate (Tessalon Cap*) 100 mg PO TID PRN PRN Reason: cough Dexamethasone (Decadron Tab*) 8 mg PO DAILY [facility] Stop: 02/19/19 09:01 Last Admin: 02/18/19 09:24 Dose: 8 mg Dexamethasone (Decadron Tab*) 4 mg PO BEDTIME [facility] Stop: 02/19/19 21:01 Dexamethasone (Decadron Tab*) 4 mg PO BID [facility] Dextrose (Dextrose 50% Vial 50 Ml*) 25 ml IV PUSH .FOR FS < 60 - SS PRN PRN Reason: FS < 60 Sodium Chloride (Ns 0.9% 1000 Ml) 1,000 mls @ 100 mls/hr IV PER RATE [facility] Last Admin: 02/18/19 06:55 Dose: 100 mls/hr Cefepime HCl (Maxipime 2 Gm In Dextrose Duplex (*)) 2 gm in 50 mls @ 100 mls/ hr IV Q12HR@0600,1800 [facility] Insulin Human Lispro (Humalog*) 0 units SUBCUT ACHS [facility]; Protocol Last Admin: 02/18/19 11:57 Dose: Not Given Ondansetron HCl (Zofran Inj*) 4 mg IV Q6H PRN PRN Reason: NAUSEA Pantoprazole Sodium (Protonix Iv*) 40 mg IV BID [facility] Last Admin: 02/18/19 11:54 Dose: 40 mg Laboratory Results - last 24 hr 02/18/19 02/18/19 02/18/19 04:14 04:14 04:14 WBC 0.1 L RBC 3.47 L Hgb 10.8 L Hct 32 L MCV 92 MCH 31 MCHC 34 RDW 13 Plt Count 24 L D MPV 8.7 Neut % (Auto) Not Reportable Lymph % (Auto) Not Reportable [place] % (Auto) Not Reportable Eos % (Auto) Not Reportable Baso % (Auto) Not Reportable Absolute Neuts (auto) Not Reportable Absolute Lymphs (auto) Not Reportable Absolute Monos (auto) Not Reportable Absolute Eos (auto) Not Reportable Absolute Basos (auto) Not Reportable Absolute Nucleated RBC Not Reportable Immature Gran % 1.0 Neutrophils % 3.0 Band Neutrophils % 1.0 Lymphocytes % 92.0 Monocytes % 1.0 Eosinophils % 3.0 Nucleated RBC % Not Reportable Abs Neuts (Manual) 0.0 L* Abs Lymphs (Manual) 0.1 L Abs Monocytes (Manual) 0.0 Absolute Eos (Manual) 0.0 Normal RBC Morphology Normal INR (Anticoag Therapy) 1.39 H Sodium 133 L Potassium 4.0 Chloride 107 Carbon Dioxide 20 L Anion Gap 6 BUN 31 H Creatinine 0.80 Est GFR ( Amer) 85.6 Est GFR (Non-Af Amer) 70.7 BUN/Creatinine Ratio 38.8 H Glucose 97 POC Glucose (mg/dL) Lactic Acid Calcium 7.4 L Magnesium 2.0 Total Bilirubin 0.40 AST 15 ALT 16 Alkaline Phosphatase 37 Troponin I 0.04 H* C-Reactive Protein 314.39 H Total Protein 4.7 L Albumin 2.6 L Globulin 2.1 Albumin/Globulin Ratio 1.2 TSH 0.02 L Free T4 1.44 H Urine Color Urine Appearance Urine pH Ur Specific Cut Off Urine Protein Urine Ketones Urine Blood Urine Nitrate Urine Bilirubin Urine Urobilinogen Ur Leukocyte Esterase Urine WBC (Auto) Urine RBC (Auto) Ur Squamous Epith Cells Urine Bacteria Urine Glucose 02/18/19 02/18/19 02/18/19 04:14 05:20 07:58 WBC RBC Hgb Hct MCV MCH MCHC RDW Plt Count MPV Neut % (Auto) Lymph % (Auto) [place] % (Auto) Eos % (Auto) Baso % (Auto) Absolute Neuts (auto) Absolute Lymphs (auto) Absolute Monos (auto) Absolute Eos (auto) Absolute Basos (auto) Absolute Nucleated RBC Immature Gran % Neutrophils % Band Neutrophils % Lymphocytes % Monocytes % Eosinophils % Nucleated RBC % Abs Neuts (Manual) Abs Lymphs (Manual) Abs Monocytes (Manual) Absolute Eos (Manual) Normal RBC Morphology INR (Anticoag Therapy) Sodium Potassium Chloride Carbon Dioxide Anion Gap BUN Creatinine Est GFR ( Amer) Est GFR (Non-Af Amer) BUN/Creatinine Ratio Glucose POC Glucose (mg/dL) 50 L Lactic Acid 0.9 Calcium Magnesium Total Bilirubin AST ALT Alkaline Phosphatase Troponin I C-Reactive Protein Total Protein Albumin Globulin Albumin/Globulin Ratio TSH Free T4 Urine Color Maki Urine Appearance Clear Urine pH 5.0 Ur Specific Cut Off 1.025 Urine Protein 2+(100 mg/dl) A Urine Ketones Negative Urine Blood 2+ A Urine Nitrate Negative Urine Bilirubin Negative Urine Urobilinogen Negative Ur Leukocyte Esterase Negative Urine WBC (Auto) Absent Urine RBC (Auto) Trace(0-2/hpf) Ur Squamous Epith Cells Present A Urine Bacteria Absent Urine Glucose Negative 02/18/19 02/18/19 02/18/19 08:37 09:23 11:34 WBC RBC Hgb Hct MCV MCH MCHC RDW Plt Count MPV Neut % (Auto) Lymph % (Auto) [place] % (Auto) Eos % (Auto) Baso % (Auto) Absolute Neuts (auto) Absolute Lymphs (auto) Absolute Monos (auto) Absolute Eos (auto) Absolute Basos (auto) Absolute Nucleated RBC Immature Gran % Neutrophils % Band Neutrophils % Lymphocytes % Monocytes % Eosinophils % Nucleated RBC % Abs Neuts (Manual) Abs Lymphs (Manual) Abs Monocytes (Manual) Absolute Eos (Manual) Normal RBC Morphology INR (Anticoag Therapy) Sodium Potassium Chloride Carbon Dioxide Anion Gap BUN Creatinine Est GFR ( Amer) Est GFR (Non-Af Amer) BUN/Creatinine Ratio Glucose POC Glucose (mg/dL) 80 113 H Lactic Acid Calcium Magnesium Total Bilirubin AST ALT Alkaline Phosphatase Troponin I 0.06 H* C-Reactive Protein Total Protein Albumin Globulin Albumin/Globulin Ratio TSH Free T4 Urine Color Urine Appearance Urine pH Ur Specific Cut Off Urine Protein Urine Ketones Urine Blood Urine Nitrate Urine Bilirubin Urine Urobilinogen Ur Leukocyte Esterase Urine WBC (Auto) Urine RBC (Auto) Ur Squamous Epith Cells Urine Bacteria Urine Glucose Exam Gen: lethargic and ill appearing 73 yo female HEENT: MMM CV: RRR, no m/r/g Resp: diffuse rhonchi and occasional wheeze, no crackles Abd: soft, nonTTP with active BS Ext: no edema] Assessment: [This is a 73 yo female with a relatively new diagnosis of metastatic small cell lung cancer who received her first cycle of chemotherapy with carboplatin and etoposide 02/10/19 and gammknife to [employer]OUSING [employer]IST lesions 02/16 who presents with neutropenic fever. Blood cultures pending, no obvious source of infection but had c/o cough and diarrhea prior to admission. Troponin is slightly elevated, likely due to demand ischemia and she is free of CP. Stool is heme positive, slight drop in Hgb is within the range possible from chemotherapy related cytopenia, but she is at high risk for GIB with recent steroid use and thrombocytopenia.] Plan: [1. Neutropenic fever - cultures pending - cont cefepime 2. Pancytopenia - secondary to chemotherapy 3. Demand ischemia - troponin rigo slightly from admission to 0.06 - repeat troponin and EKG again at noon, slight ST depression noted on EKG from this am, but remains <1mm - cont telemetry monitoring 4. Heme positive stool - start IV PPI - repeat Hgb at noon today and follow closely - can consider EGD when she stabilizes clinically and neutropenia resolves, but there is no indication for this urgently/emergently at this time 5. Diarrhea - likely chemotherapy related - can use imodium prn - Cdiff negative 6. SCLC, metastatic - C1D1 carboplatin/etoposide 02/10/19 - gammaknife to [employer]OUS[employer] lesions 02/16/19 Dispo: requires continued inpatient care, assess appropriateness for dc home when ANC >1000]
[2019-02-18 12:53] LABS: Hematocrit 27 % (35-47); Hemoglobin 9.1 g/dL (12.0-16.0); Mean Corpuscular HGB Conc 34 g/dL (31-36); Mean Corpuscular Hemoglobin 32 pg (27-31); Mean Corpuscular Volume 93 fL (80-97); Red Blood Count 2.86 10^6 /uL (3.70-4.87); Red Cell Distribution Width 13 % (10-15); White Blood Count 0.1 10^3/uL (3.5-10.8)
[2019-02-18] MEDS ORDERED: Hydrocortisone INJ* 100 MG VIAL IV ONE (12:55)
[2019-02-18 13:09] LABS: Troponin I 0.07 ng/mL (<0.04)
[2019-02-18] MEDS ORDERED: NS 0.9% IV ONE (13:13)
--- NOTE | 2019-02-18 13:19 | PN ---
Progress Note - Progress Note Date of Service: 02/18/19 SOAP: Subjective: []Called to bedside per daughter's request, concern for increased somnolence. Nursing notes new hypotension. Edwige states she feels OK, "I don't feel loopy." Per report from rounding provider, patient alert and appropriate this AM though notably sleepy. Stress dose steroids initiated and cont.'d cardiac monitoring with rising trop concerning for demand ischemia. Medications Acetaminophen (Tylenol Tab*) 650 mg PO Q4H PRN PRN Reason: MILD PAIN or TEMP > 100.4 Last Admin: 02/18/19 08:02 Dose: 650 mg Albuterol/Ipratropium (Duoneb (Albuterol 2.5 Mg/Ipratropium 0.5 Mg)) 1 neb INH Q4H PRN PRN Reason: SOB/WHEEZING Atorvastatin Calcium (Lipitor*) 10 mg PO BEDTIME [facility] Benzonatate (Tessalon Cap*) 100 mg PO TID PRN PRN Reason: cough Dexamethasone (Decadron Tab*) 8 mg PO DAILY [facility] Stop: 02/19/19 09:01 Last Admin: 02/18/19 09:24 Dose: 8 mg Dexamethasone (Decadron Tab*) 4 mg PO BEDTIME [facility] Stop: 02/19/19 21:01 Dexamethasone (Decadron Tab*) 4 mg PO BID [facility] Dextrose (Dextrose 50% Vial 50 Ml*) 25 ml IV PUSH .FOR FS < 60 - SS PRN PRN Reason: FS < 60 Hydrocortisone Sodium Succinate (Solu-Cortef*) 50 mg IV Q8H [facility] Sodium Chloride (Ns 0.9% 1000 Ml) 1,000 mls @ 100 mls/hr IV PER RATE [facility] Last Admin: 02/18/19 06:55 Dose: 100 mls/hr Cefepime HCl (Maxipime 2 Gm In Dextrose Duplex (*)) 2 gm in 50 mls @ 100 mls/ hr IV Q8H [facility] Sodium Chloride (Ns 0.9% 1000 Ml) 2,330 mls @ 2,330 mls/hr 30 ml/kg infuse over 1 hr (2330 ml) IV .NOTE TOTAL VOLUME ONE Stop: 02/18/19 14:12 Insulin Human Lispro (Humalog*) 0 units SUBCUT [facility]; Protocol Last Admin: 02/18/19 11:57 Dose: Not Given Ondansetron HCl (Zofran Inj*) 4 mg IV Q6H PRN PRN Reason: NAUSEA Pantoprazole Sodium (Protonix Iv*) 40 mg IV BID [facility] Last Admin: 02/18/19 11:54 Dose: 40 mg Objective: [] Vital Signs Temp Pulse Resp BP Pulse Ox 95.6 F 94 26 88/64 96 02/18/19 13:20 02/18/19 13:20 02/18/19 13:20 02/18/19 13:20 02/18/19 13:20 A&Ox3, understands situation, though notably sleepy and will fall asleep Diaphoretic, pale HRR, S2S2, tele SR LS rhonchi bilat. throughout Assessment: []73 yo female with metastatic SCLC s/p C1 Carbo/Etoposide admitted overnight with febrile neutropenia, source currently unclear, however new hypotension and concern for lethargy reveals sepsis. At this time she is receiving all the appropriate treatments and I see not indication to transfer to the ICU, however if her lactic acid returns elevated and/or she has persistent hypotension and I am apt to consider transfer for consideration of further interventions. This was reviewed with the daughter at length. Plan: []STAT labs drawn Bolus of 30 mL/kg initiated Repeat CBC in 4 hours Cont. trops. and tele VS q30 for next 3 hours
[2019-02-18] MEDS: Cefepime 2 GM in Dextrose(*) 2 GM/50 ML BAG IV SCH ×2 (14:06→21:26)
[2019-02-18 14:30] LABS: Albumin 2.1 g/dL (3.2-5.2); Potassium 3.9 mmol/L (3.5-5.0); Total Bilirubin 0.5 mg/dL (0.2-1.0)
[2019-02-18 14:36] LABS: Albumin/Globulin Ratio 1.2 (1-3); BUN/Creatinine Ratio 26.3 (8-20); EGFR African American 56.9 (>60); Globulin 1.8 g/dL (2-4); Total Protein 3.9 g/dL (6.4-8.9)
[2019-02-18 14:40] LABS: Calcium 6.6 mg/dL (8.6-10.3)
[2019-02-18 15:03] LABS: Platelet Count 12 10^3/uL (150-450)
[2019-02-18 16:13] LABS: Troponin I 0.07 ng/mL (<0.04)
[2019-02-18 16:31] LABS: ABS Lymphocytes 0.1 10^3/ul (1.0-4.8); Hematocrit 24 % (35-47); Hemoglobin 8.1 g/dL (12.0-16.0); Lymphocyte % 88.3 %; Mean Corpuscular HGB Conc 33 g/dL (31-36); Mean Corpuscular Hemoglobin 32 pg (27-31); Mean Corpuscular Volume 95 fL (80-97); Mean Platelet Volume 7.7 fL (7.4-10.4); Nucleated Red Blood Cells % 2.4; Platelet Count 11 10^3/uL (150-450); Red Blood Count 2.57 10^6 /uL (3.70-4.87); Red Cell Distribution Width 13 % (10-15); White Blood Count 0.1 10^3/uL (3.5-10.8)
--- NOTE | 2019-02-18 17:28 | PN ---
Sepsis Event Evaluation Date of Evaluation: 02/18/19 Time of Evaluation: 17:00 Current Stage of Sepsis: Severe Sepsis Vital Signs - Last 12 Hours: Vital Signs - 12 hr Temp Pulse Resp BP Pulse Ox 02/18/19 15:00 98.4 F 88 17 106/44 96 02/18/19 14:25 97.2 F 80 18 110/52 98 02/18/19 14:20 96.9 F 89 22 90/60 96 02/18/19 13:20 95.6 F 94 26 88/64 96 02/18/19 08:08 102.6 F 95 22 154/83 90 02/18/19 08:00 22 02/18/19 06:39 99.9 F 90 20 132/52 97 02/18/19 06:34 90 27 132/52 90 02/18/19 06:04 102 25 153/95 97 02/18/19 06:00 103 21 97 02/18/19 05:34 96 21 135/61 95 Lactic Acid: 02/18/19 02/18/19 02/18/19 04:14 13:57 15:43 Lactic Acid 0.9 2.2 H* 2.1 H* - Cardiopulmonary Exam Capillary Refill: Immediate Respiratory: - - Rhonchourous, accessory muscle use Cardiovascular: RRR - Peripheral Pulse Exam Radial Pulses: Bilateral Normal Pedal Pulses: Bilateral Normal Posterior Tibial Pulse: Bilateral Normal Femoral Pulses: Bilateral Normal Popliteal Pulses: Bilateral Normal - Skin Exam Skin Exam: Pale - Shant Coma Scale Best Eye Response: 4 - Spontaneous Best Motor Response: 6 - Obeys Commands Best Verbal Response: 5 - Oriented Coma Scale Total: 15 Assess/Plan/Problems-Billing Assessment: 73 yo female admitted with febrile neutropenia found to be diaphoretic and hypotensive today at 1300 with lactic acid 2.2 and rising Cr. Bolus initiated however SBP remains 90-110 and concern for fluid overload with known pulmonary mets. Case reviewed with Dr. Krishnamurthy, intesivist, and will transfer to ICU for consideration of vasopressors. Status and Disposition: Status: Critical Disposition: transfer to ICU Counseling and/or Coordination of Care Minutes: Plan of care reviewed with Hector choi Attending: Elizabeth Menchaca
--- NOTE | 2019-02-18 18:07 | PN ---
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 On arrival to ICU, patient was alert and BP was adequate, so vasopressors not needed at this time. Possible sepsis from the lungs, although CXR is normal at this time. Will use cefepime for empiric antibiotic coverage of neutropenic fever. Full consult dictated.
--- NOTE | 2019-02-18 18:38 | PN ---
Progress Note - Progress Note Date of Service: 02/18/19 Note: Patient is now DNI/DNR per her request.
--- NOTE | 2019-02-18 19:10 | CONS ---
CRITICAL CARE CONSULT: DATE OF CONSULT: 02/18/19 REASON FOR CONSULT: Possible septic shock. HISTORY OF PRESENT ILLNESS: This patient is a 73-year-old white female who was diagnosed with metastatic oat cell carcinoma of the lung (mets to [employer]) approximately 1 month ago, and since that time has undergone gamma knife treatment to her brain lesions and chemotherapy, which began about 1 week ago. The patient was admitted to the hospital last night with fever, neutropenia and cough. On the floor today, the patient developed hypotension that did not respond to volume infusion, and she was subsequently brought to the intensive care unit. On admission to the ICU, the patient was alert, oriented, and appeared comfortable. Her blood pressure was 112 systolic. The patient claims recent fevers and productive cough, and has a longstanding history of smoking. Chest x-ray was apparently unrevealing on admission. CURRENT MEDICATIONS: On admission to the ICU, the patient is receiving the following meds: 1. Cefepime 2 g IV q.8 hours. 2. Dexamethasone 4 mg p.o. b.i.d. 3. Hydrocortisone 50 mg IV q.8 hours. 4. Insulin sliding scale coverage. 5. Normal saline at 100 mL per hour. 6. Pantoprazole 40 mg IV twice daily. 7. DuoNeb treatments as needed. PHYSICAL EXAM: Vital Signs: Temperature 97.8; blood pressure 121/65; pulse rate 101; respiratory rate 20, nonlabored; O2 sat 96% on nasal oxygen at 4 L per minute. HEENT: Oropharynx was clear. Neck was supple. There was no adenopathy. Lung exam revealed coarse rhonchi bilaterally, but no crackles or wheezes. Cardiac exam revealed a regular rhythm without murmurs or rubs. Abdomen was nondistended and nontender. Extremities were warm, not edematous, and not cyanotic. DIAGNOSTIC STUDIES/LAB DATA: Significant laboratory abnormalities include a white count of 0.1, a platelet count of 12,000, serum bicarb of 17, an albumin of 2.1; and a lactate of 2.2, repeat of 2.1. Last fingerstick glucose was 109. Chest x-ray from the morning of 02/18/19 shows no pulmonary infiltrates. IMPRESSION: This patient could have sepsis of pulmonary origin, but does not have all the earmarks of septic shock. However, because of her neutropenia, admission to the ICU for close hemodynamic monitoring is warranted. I agree with using cefepime for neutropenic fever along with hydrocortisone and dexamethasone for cerebral mets. Vasopressors are not necessary at this time, considering the patient's mental status and adequate urine output. MANAGEMENT PLAN: Continue fluids at 100 cc per hour along with cefepime and hydrocortisone. No vasopressors as long as mental status is good and urine output is greater than 0.5 mL/kg per hour. Prognosis at this time is guarded. The daughter will speak to the patient about code status and the daughter has asked us not to broach the subject until she speaks to the patient. CRITICAL CARE TIME: 60 minutes. [id number]/CPS #: [id number] MANJEET
[2019-02-18] MEDS: Atorvastatin* 10 MG TAB PO SCH (19:32)
[2019-02-18] MEDS: Famotidine TAB* 20 MG PO SCH (19:32)
[2019-02-18 20:45] LABS: Troponin I 0.04 ng/mL (<0.04)
[2019-02-18] MEDS: Albuterol/Ipratropium NEB.SOL* Albuterol 2.5 MG/Ipratropium 0.5 MG 3 ML INH PRN (22:05)
[2019-02-19] MEDS: Cefepime 2 GM in Dextrose(*) 2 GM/50 ML BAG IV SCH ×3 (05:54→21:38)
[2019-02-19] MEDS: NS 0.9% 1000 ML** 1,000 ML IV SCH ×2 (06:04→13:09)
[2019-02-19 06:15] LABS: BUN/Creatinine Ratio 36.6 (8-20); Calcium 6.6 mg/dL (8.6-10.3); EGFR African American 83.2 (>60); EGFR Non-African American 68.7 (>60); Potassium 3.8 mmol/L (3.5-5.0)
[2019-02-19 06:51] LABS: Hematocrit 26 % (35-47); Hemoglobin 8.8 g/dL (12.0-16.0); Mean Corpuscular HGB Conc 33 g/dL (31-36); Mean Corpuscular Hemoglobin 31 pg (27-31); Mean Corpuscular Volume 93 fL (80-97); Platelet Count 17 10^3/uL (150-450); Red Blood Count 2.84 10^6 /uL (3.70-4.87); Red Cell Distribution Width 13 % (10-15)
[2019-02-19] MEDS: Hydrocortisone INJ* 100 MG VIAL IV SCH ×2 (07:41→17:54)
[2019-02-19] MEDS: Famotidine TAB* 20 MG PO SCH ×2 (07:41→21:35)
[2019-02-19] MEDS: Dexamethasone TAB* 4 MG PO SCH ×2 (07:42→21:36)
[2019-02-19] MEDS: Acetaminophen TAB* 325 MG PO PRN (07:42)
[2019-02-19] MEDS: ALPRAZolam TAB* 0.25 MG PO PRN (07:42)
[2019-02-19] MEDS: Insulin LISPRO* 1 UNITS UNIT SUBCUT SCH ×4 (08:17→20:47)
--- NOTE | 2019-02-19 09:23 | PN ---
Progress Note - Progress Note Date of Service: 02/19/19 SOAP: Subjective: [Transferred to ICU late yesterday afternoon due to hypotension and increased WOB. She did not require pressor support. Feeling better today.] Objective: [ Vital Signs: Temp Pulse Resp BP Pulse Ox 99 F 97 23 108/60 99 02/19/19 07:28 02/19/19 08:01 02/19/19 08:01 02/19/19 08:00 02/19/19 08:01 Acetaminophen (Tylenol Tab*) 650 mg PO Q4H PRN PRN Reason: MILD PAIN or TEMP > 100.4 Last Admin: 02/19/19 07:42 Dose: 650 mg Albuterol/Ipratropium (Duoneb (Albuterol 2.5 Mg/Ipratropium 0.5 Mg)) 1 neb INH Q4H PRN PRN Reason: SOB/WHEEZING Last Admin: 02/18/19 22:05 Dose: 1 neb Alprazolam (Xanax Tab*) 0.25 mg PO BID PRN PRN Reason: ANXIETY Last Admin: 02/19/19 07:42 Dose: 0.25 mg Atorvastatin Calcium (Lipitor*) 10 mg PO BEDTIME [facility] Last Admin: 02/18/19 19:32 Dose: 10 mg Benzonatate (Tessalon Cap*) 100 mg PO TID PRN PRN Reason: cough Dexamethasone (Decadron Tab*) 4 mg PO BEDTIME [facility] Stop: 02/19/19 21:01 Last Admin: 02/18/19 19:32 Dose: 4 mg Dexamethasone (Decadron Tab*) 4 mg PO BID [facility] Dextrose (Dextrose 50% Vial 50 Ml*) 25 ml IV PUSH .FOR FS < 60 - SS PRN PRN Reason: FS < 60 Famotidine (Pepcid Tab*) 20 mg PO BID [facility] Last Admin: 02/19/19 07:41 Dose: 20 mg Hydrocortisone Sodium Succinate (Solu-Cortef*) 50 mg IV Q8H [facility] Last Admin: 02/19/19 07:41 Dose: 50 mg Sodium Chloride (Ns 0.9% 1000 Ml) 1,000 mls @ 100 mls/hr IV PER RATE [facility] Last Admin: 02/19/19 06:04 Dose: 100 mls/hr Cefepime HCl (Maxipime 2 Gm In Dextrose Duplex (*)) 2 gm in 50 mls @ 100 mls/ hr IV Q8H [facility] Last Admin: 02/19/19 05:54 Dose: 100 mls/hr Insulin Human Lispro (Humalog*) 0 units SUBCUT ACHS [facility]; Protocol Last Admin: 02/19/19 08:17 Dose: Not Given Ondansetron HCl (Zofran Inj*) 4 mg IV Q6H PRN PRN Reason: NAUSEA Laboratory Results - last 24 hr 02/18/19 02/18/19 02/18/19 04:14 09:23 11:34 WBC RBC Hgb Hct MCV MCH MCHC RDW Plt Count MPV Neut % (Auto) Lymph % (Auto) [place] % (Auto) Eos % (Auto) Baso % (Auto) Absolute Neuts (auto) Absolute Lymphs (auto) Absolute Monos (auto) Absolute Eos (auto) Absolute Basos (auto) Absolute Nucleated RBC Nucleated RBC % Hem Pathologist Commnt Sodium Potassium Chloride Carbon Dioxide Anion Gap BUN Creatinine Est GFR ( Amer) Est GFR (Non-Af Amer) BUN/Creatinine Ratio Glucose POC Glucose (mg/dL) 113 H Lactic Acid Calcium Total Bilirubin AST ALT Alkaline Phosphatase Troponin I 0.06 H* Total Protein Albumin Globulin Albumin/Globulin Ratio Blood Type Antibody Screen 02/18/19 02/18/19 02/18/19 12:33 12:33 12:33 WBC 0.1 L RBC 2.86 L Hgb 9.1 L Hct 27 L MCV 93 MCH 32 H MCHC 34 RDW 13 Plt Count Not Reportable MPV Not Reportable Neut % (Auto) Not Reportable Lymph % (Auto) Not Reportable [place] % (Auto) Not Reportable Eos % (Auto) Not Reportable Baso % (Auto) Not Reportable Absolute Neuts (auto) Not Reportable Absolute Lymphs (auto) Not Reportable Absolute Monos (auto) Not Reportable Absolute Eos (auto) Not Reportable Absolute Basos (auto) Not Reportable Absolute Nucleated RBC Not Reportable Nucleated RBC % Not Reportable Hem Pathologist Commnt Sodium Potassium Chloride Carbon Dioxide Anion Gap BUN Creatinine Est GFR ( Amer) Est GFR (Non-Af Amer) BUN/Creatinine Ratio Glucose POC Glucose (mg/dL) Lactic Acid Calcium Total Bilirubin AST ALT Alkaline Phosphatase Troponin I 0.07 H* Total Protein Albumin Globulin Albumin/Globulin Ratio Blood Type A Positive Antibody Screen Negative 02/18/19 02/18/19 02/18/19 12:55 13:57 13:57 WBC RBC Hgb Hct MCV MCH MCHC RDW Plt Count MPV Neut % (Auto) Lymph % (Auto) [place] % (Auto) Eos % (Auto) Baso % (Auto) Absolute Neuts (auto) Absolute Lymphs (auto) Absolute Monos (auto) Absolute Eos (auto) Absolute Basos (auto) Absolute Nucleated RBC Nucleated RBC % Hem Pathologist Commnt Sodium 135 Potassium 3.9 Chloride 111 Carbon Dioxide 17 L Anion Gap 7 BUN 30 H Creatinine 1.14 H Est GFR ( Amer) 56.9 Est GFR (Non-Af Amer) 47.0 BUN/Creatinine Ratio 26.3 H Glucose 97 POC Glucose (mg/dL) 112 H Lactic Acid 2.2 H* Calcium 6.6 L Total Bilirubin 0.50 AST 17 ALT 16 Alkaline Phosphatase 37 Troponin I Total Protein 3.9 L Albumin 2.1 L Globulin 1.8 L Albumin/Globulin Ratio 1.2 Blood Type Antibody Screen 02/18/19 02/18/19 02/18/19 14:07 15:43 15:43 WBC 0.1 L RBC 2.57 L Hgb 8.1 L Hct 24 L MCV 95 MCH 32 H MCHC 33 RDW 13 Plt Count 12 L* 11 L D MPV 7.7 Neut % (Auto) 4.0 Lymph % (Auto) 88.3 [place] % (Auto) 3.7 Eos % (Auto) 4.0 Baso % (Auto) 0.0 Absolute Neuts (auto) 0.0 L Absolute Lymphs (auto) 0.1 L Absolute Monos (auto) 0.0 Absolute Eos (auto) 0.0 Absolute Basos (auto) 0.0 Absolute Nucleated RBC 0.0 Nucleated RBC % 2.4 Hem Pathologist Commnt Sodium Potassium Chloride Carbon Dioxide Anion Gap BUN Creatinine Est GFR ( Amer) Est GFR (Non-Af Amer) BUN/Creatinine Ratio Glucose POC Glucose (mg/dL) Lactic Acid Calcium Total Bilirubin AST ALT Alkaline Phosphatase Troponin I 0.07 H* Total Protein Albumin Globulin Albumin/Globulin Ratio Blood Type Antibody Screen 02/18/19 02/18/19 02/18/19 15:43 16:49 20:00 WBC RBC Hgb Hct MCV MCH MCHC RDW Plt Count MPV Neut % (Auto) Lymph % (Auto) [place] % (Auto) Eos % (Auto) Baso % (Auto) Absolute Neuts (auto) Absolute Lymphs (auto) Absolute Monos (auto) Absolute Eos (auto) Absolute Basos (auto) Absolute Nucleated RBC Nucleated RBC % Hem Pathologist Commnt Sodium Potassium Chloride Carbon Dioxide Anion Gap BUN Creatinine Est GFR ( Amer) Est GFR (Non-Af Amer) BUN/Creatinine Ratio Glucose POC Glucose (mg/dL) 109 H Lactic Acid 2.1 H* Calcium Total Bilirubin AST ALT Alkaline Phosphatase Troponin I 0.04 H* Total Protein Albumin Globulin Albumin/Globulin Ratio Blood Type Antibody Screen 02/18/19 02/18/19 02/19/19 20:00 21:19 05:43 WBC RBC 2.84 L Hgb 8.8 L Hct 26 L MCV 93 MCH 31 MCHC 33 RDW 13 Plt Count 17 L* MPV 7.0 L Neut % (Auto) Lymph % (Auto) [place] % (Auto) Eos % (Auto) Baso % (Auto) Absolute Neuts (auto) Absolute Lymphs (auto) Absolute Monos (auto) Absolute Eos (auto) Absolute Basos (auto) Absolute Nucleated RBC Nucleated RBC % Hem Pathologist Commnt Sodium Potassium Chloride Carbon Dioxide Anion Gap BUN Creatinine Est GFR ( Amer) Est GFR (Non-Af Amer) BUN/Creatinine Ratio Glucose POC Glucose (mg/dL) 135 H Lactic Acid 0.4 L Calcium Total Bilirubin AST ALT Alkaline Phosphatase Troponin I Total Protein Albumin Globulin Albumin/Globulin Ratio Blood Type Antibody Screen 02/19/19 02/19/19 05:43 05:43 WBC RBC Hgb Hct MCV MCH MCHC RDW Plt Count MPV Neut % (Auto) Lymph % (Auto) [place] % (Auto) Eos % (Auto) Baso % (Auto) Absolute Neuts (auto) Absolute Lymphs (auto) Absolute Monos (auto) Absolute Eos (auto) Absolute Basos (auto) Absolute Nucleated RBC Nucleated RBC % Hem Pathologist Commnt Sodium 137 Potassium 3.8 Chloride 112 H Carbon Dioxide 15 L Anion Gap 10 BUN 30 H Creatinine 0.82 Est GFR ( Amer) 83.2 Est GFR (Non-Af Amer) 68.7 BUN/Creatinine Ratio 36.6 H Glucose 100 POC Glucose (mg/dL) Lactic Acid 0.5 Calcium 6.6 L Total Bilirubin AST ALT Alkaline Phosphatase Troponin I Total Protein Albumin Globulin Albumin/Globulin Ratio Blood Type Antibody Screen Exam Gen: lethargic and ill appearing 73 yo female HEENT: MMM CV: RRR, no m/r/g Resp: diffuse rhonchi and occasional wheeze, no crackles Abd: soft, nonTTP with active BS Ext: no edema] Assessment: [This is a 73 yo female with a relatively new diagnosis of metastatic small cell lung cancer who received her first cycle of chemotherapy with carboplatin and etoposide 02/10/19 and gammaknife to HAND [employer] lesions 02/16 who presents with neutropenic fever. Blood cultures remain pending from yesterday, no obvious source of infection but had c/o cough and diarrhea prior to admission. Troponin was slightly elevated, likely due to demand ischemia. Stool is heme positive, with a precipitous drop yesterday, c/w GIB with recent steroid use and thrombocytopenia.] Plan: [1. Neutropenic fever, sepsis - cultures pending - CXR negative - cont cefepime - concern for possible aspiration, swallow evaluation pending - sputum cx 2. Pancytopenia - secondary to chemotherapy 3. Demand ischemia - troponin peaked at 0.07 - cont telemetry monitoring 4. GIB - cont IV PPI - Hgb stable over the last 12 hours or so - received 1U platelets yesterday, repeat one additional unit of platelets today - transfuse RBCs for Hgb <8 - can consider EGD when she in no longer neutropenic, no urgent need at this time 5. Diarrhea - likely chemotherapy related and/or d/t GIB - can use imodium prn - Cdiff negative 6. SCLC, metastatic - C1D1 carboplatin/etoposide 02/10/19 - gammaknife to HAND STRAIGHTENER lesions 02/16/19 Dispo: requires continued inpatient care but ok to transfer to medical floor from ICU, assess appropriateness for dc home when ANC >1000]
[2019-02-19 09:25] LABS: White Blood Count 0 10^3/uL (3.5-10.8)
[2019-02-19 20:26] LABS: Mean Platelet Volume 7.5 fL (7.4-10.4); Platelet Count 26 10^3/uL (150-450)
[2019-02-19] MEDS: Atorvastatin* 10 MG TAB PO SCH (21:36)
[2019-02-20] MEDS: Hydrocortisone INJ* 100 MG VIAL IV SCH ×3 (02:39→18:27)
[2019-02-20] MEDS: ALPRAZolam TAB* 0.25 MG PO PRN ×2 (02:47→21:07)
[2019-02-20] MEDS: Acetaminophen TAB* 325 MG PO PRN (02:48)
[2019-02-20] MEDS: Albuterol/Ipratropium NEB.SOL* Albuterol 2.5 MG/Ipratropium 0.5 MG 3 ML INH PRN ×4 (02:56→20:31)
[2019-02-20] MEDS: NS 0.9% 1000 ML** 1,000 ML IV SCH (03:40)
[2019-02-20 06:30] LABS: Albumin 2.4 g/dL (3.2-5.2); BUN/Creatinine Ratio 39.8 (8-20); Calcium 6.5 mg/dL (8.6-10.3); EGFR African American 71.9 (>60); EGFR Non-African American 59.4 (>60); Globulin 2.5 g/dL (2-4); Potassium 3.5 mmol/L (3.5-5.0); Total Bilirubin 0.4 mg/dL (0.2-1.0); Total Protein 4.9 g/dL (6.4-8.9)
[2019-02-20 06:59] LABS: Hematocrit 27 % (35-47); Hemoglobin 9.2 g/dL (12.0-16.0); Mean Corpuscular HGB Conc 34 g/dL (31-36); Mean Corpuscular Hemoglobin 32 pg (27-31); Mean Corpuscular Volume 93 fL (80-97); Red Cell Distribution Width 14 % (10-15)
[2019-02-20] MEDS ORDERED: Calcium Gluconate INJ* 2 GM in NS 0.9% 100 ML* 100 ML IV ONE (07:00)
[2019-02-20 07:01] LABS: Magnesium 1.8 mg/dL (1.9-2.7)
[2019-02-20] MEDS: Cefepime 2 GM in Dextrose(*) 2 GM/50 ML BAG IV SCH ×3 (07:33→22:57)
--- NOTE | 2019-02-20 07:35 | PN ---
Progress Note - Progress Note Date of Service: 02/20/19 SOAP: Subjective: "how is your breathing?" "Poopy". still having diarrhea, though significantly less. just feels tired and very weak. passed swallow eval yesterday without any concerns. Objective: Vital Signs Temp Pulse Resp BP Pulse Ox 97.7 F 94 18 140/67 99 02/19/19 20:01 02/20/19 02:58 02/20/19 02:58 02/20/19 02:20 02/20/19 02:58 lying flat, rr 20-22 op very dry diffuse rhonchi and wheeze s1 s2 nl obese nt +bs no le edema A+O x 3, tired but appropriate, nonfocal grossly though did not ambulate Laboratory Results - last 24 hr 02/19/19 02/19/19 02/19/19 16:52 20:14 20:18 WBC RBC Hgb Hct MCV MCH MCHC RDW Plt Count 26 L D MPV 7.5 Neut % (Auto) Lymph % (Auto) [place] % (Auto) Eos % (Auto) Baso % (Auto) Absolute Neuts (auto) Absolute Lymphs (auto) Absolute Monos (auto) Absolute Eos (auto) Absolute Basos (auto) Absolute Nucleated RBC Nucleated RBC % Sodium Potassium Chloride Carbon Dioxide Anion Gap BUN Creatinine Est GFR ( Amer) Est GFR (Non-Af Amer) BUN/Creatinine Ratio Glucose POC Glucose (mg/dL) 124 H 194 H Calcium Magnesium Total Bilirubin AST ALT Alkaline Phosphatase Total Protein Albumin Globulin Albumin/Globulin Ratio 02/20/19 02/20/19 05:47 05:47 WBC RBC 2.90 L Hgb 9.2 L Hct 27 L MCV 93 MCH 32 H MCHC 34 RDW 14 Plt Count MPV Neut % (Auto) Not Reportable Lymph % (Auto) Not Reportable [place] % (Auto) Not Reportable Eos % (Auto) Not Reportable Baso % (Auto) Not Reportable Absolute Neuts (auto) Not Reportable Absolute Lymphs (auto) Not Reportable Absolute Monos (auto) Not Reportable Absolute Eos (auto) Not Reportable Absolute Basos (auto) Not Reportable Absolute Nucleated RBC Not Reportable Nucleated RBC % Not Reportable Sodium 137 Potassium 3.5 Chloride 113 H Carbon Dioxide 13 L* Anion Gap 11 BUN 37 H Creatinine 0.93 Est GFR ( Amer) 71.9 Est GFR (Non-Af Amer) 59.4 BUN/Creatinine Ratio 39.8 H Glucose 227 H POC Glucose (mg/dL) Calcium 6.5 L Magnesium 1.8 L Total Bilirubin 0.40 AST 12 L ALT 21 Alkaline Phosphatase 45 Total Protein 4.9 L Albumin 2.4 L Globulin 2.5 Albumin/Globulin Ratio 1.0 Acetaminophen (Tylenol Tab*) 650 mg PO Q4H PRN PRN Reason: MILD PAIN or TEMP > 100.4 Last Admin: 02/20/19 02:48 Dose: 650 mg Albuterol/Ipratropium (Duoneb (Albuterol 2.5 Mg/Ipratropium 0.5 Mg)) 1 neb INH Q4H PRN PRN Reason: SOB/WHEEZING Last Admin: 02/20/19 02:56 Dose: 1 neb Alprazolam (Xanax Tab*) 0.25 mg PO BID PRN PRN Reason: ANXIETY Last Admin: 02/20/19 02:47 Dose: 0.25 mg Atorvastatin Calcium (Lipitor*) 10 mg PO BEDTIME [facility] Last Admin: 02/19/19 21:36 Dose: 10 mg Benzonatate (Tessalon Cap*) 100 mg PO TID PRN PRN Reason: cough Last Admin: 02/20/19 02:49 Dose: 100 mg Dexamethasone (Decadron Tab*) 4 mg PO BID [facility] Dextrose (Dextrose 50% Vial 50 Ml*) 25 ml IV PUSH .FOR FS < 60 - SS PRN PRN Reason: FS < 60 Famotidine (Pepcid Tab*) 20 mg PO BID [facility] Last Admin: 02/19/19 21:35 Dose: 20 mg Heparin Sodium (Porcine) (Heparin Flush Picc/Ml/Cvc(*)) 0 ml FLUSH 0600,1800 [facility]; Protocol Last Admin: 02/19/19 17:12 Dose: Not Given Hydrocortisone Sodium Succinate (Solu-Cortef*) 50 mg IV Q8H [facility] Last Admin: 02/20/19 02:39 Dose: 50 mg Sodium Chloride (Ns 0.9% 1000 Ml) 1,000 mls @ 100 mls/hr IV PER RATE [facility] Last Admin: 02/20/19 03:40 Dose: 100 mls/hr Cefepime HCl (Maxipime 2 Gm In Dextrose Duplex (*)) 2 gm in 50 mls @ 100 mls/ hr IV Q8H [facility] Last Admin: 02/19/19 21:38 Dose: 100 mls/hr Calcium Gluconate 2 gm/ Sodium (Chloride) 120 mls @ 60 mls/hr IV ONCE ONE Stop: 02/20/19 08:59 Insulin Human Lispro (Humalog*) 0 units SUBCUT ACHS [facility]; Protocol Last Admin: 02/19/19 20:47 Dose: 3 unit Ondansetron HCl (Zofran Inj*) 4 mg IV Q6H PRN PRN Reason: NAUSEA Potassium Chloride (Klor Con Er Tab*) 40 meq PO DAILY [facility] Assessment: 73 yo F w metastatic SCLC sp carbo/etop C1D1 02/10, a/w neutropenic fever, no clear source. Troponin was slightly elevated, likely due to demand ischemia. Stool is heme positive, stable, c/w GIB with recent steroid use and thrombocytopenia. Plan: 1. Neutropenic fever, sepsis - cultures ntd including stool - CXR negative - cont cefepime 2. Pancytopenia - secondary to chemotherapy, appropriate -consider adding neupogen cycle 2 3. Demand ischemia - troponin peaked at 0.07 - cont telemetry monitoring 4. GIB - cont IV PPI - Hgb stable - transfuse RBCs for Hgb <8 - can consider EGD when she in no longer neutropenic, no urgent need at this time 5. Diarrhea - likely chemotherapy related and/or d/t GIB - can use imodium prn - Cdiff negative 6. SCLC, metastatic - C1D1 carboplatin/etoposide 02/10/19 - gammaknife to LEGAL OFF[employer] lesions 02/16/19 7. hypokalemia/hypomagnesemia/hypocalcemia: -likely related to chemotherapy and diarrhea, replete today no dvt prophylaxis w GIB DNR
[2019-02-20 07:59] LABS: White Blood Count 0.1 10^3/uL (3.5-10.8)
[2019-02-20] MEDS ORDERED: Potassium Chlor TAB* 20 MEQ TAB.ER PO SCH (09:00)
[2019-02-20] MEDS: Insulin LISPRO* 1 UNITS UNIT SUBCUT SCH ×4 (09:24→20:51)
[2019-02-20] MEDS: Dexamethasone TAB* 4 MG PO SCH ×2 (09:25→20:04)
[2019-02-20] MEDS: Famotidine TAB* 20 MG PO SCH ×2 (09:25→20:05)
[2019-02-20 11:28] LABS: Mean Platelet Volume 8.3 fL (7.4-10.4); Platelet Count 17 10^3/uL (150-450)
[2019-02-20] MEDS: Furosemide IV* 10 MG/ML 2 ML VIAL (20 MG) IV ONE ×2 (20:04→22:57)
[2019-02-20] MEDS: Atorvastatin* 10 MG TAB PO SCH (20:04)
[2019-02-21] MEDS: Hydrocortisone INJ* 100 MG VIAL IV SCH (01:27)
[2019-02-21] MEDS: Cefepime 2 GM in Dextrose(*) 2 GM/50 ML BAG IV SCH (06:04)
[2019-02-21] MEDS: Albuterol/Ipratropium NEB.SOL* Albuterol 2.5 MG/Ipratropium 0.5 MG 3 ML INH PRN ×2 (06:38→11:50)
[2019-02-21] MEDS ORDERED: Furosemide IV* 10 MG/ML VIAL (40 MG) IV ONE (07:16)
[2019-02-21] MEDS ORDERED: Lorazepam PYXIS KEY PRN (08:18)
[2019-02-21] MEDS ORDERED: LORazepam INJ* 2 MG/ML 1 ML VIAL IV PUSH PRN (08:18)
[2019-02-21 08:21] VITALS: BP 120/75
--- NOTE | 2019-02-21 08:24 | PN ---
Progress Note - Progress Note Date of Service: 02/21/19 SOAP: Subjective: significant deterioration over the last 24 hours. significantly more SOB and uncomfortable. more confused. Objective: Vital Signs Temp Pulse Resp BP Pulse Ox 97.1 F 110 24 142/66 95 02/21/19 03:18 02/21/19 06:38 02/21/19 06:38 02/21/19 03:18 02/21/19 06:38 rr: 30 uncomfortable wheezing on left tachycardic confused, agitated, clearly uncomfortable Assessment: 73 yo F w metastatic SCLC sp cycle 1 carbo/etoposide admitted with neutropenic fever with clinical deteriorating, increased work of breathing and confusion. Family appropriately requesting comfort measures given her advanced disease and deterioration. We discussed this at length. They would like to try to bring her home with hospice tomorrow if possible. It is not clear to me that she will make it home as I suspect we will need to give her significant amounts of morphine/ativan to make her comfortable, but this will be our goal. The family is appropriately sad but also relieved to make this decision. -QUALITY CHECKER
[2019-02-21] MEDS: Morphine ORAL CONCENTRATE* 5 MG/0.25 ML ORAL.SYRIN SL PRN ×5 (09:01→18:05)
[2019-02-21] MEDS: Dexamethasone TAB* 4 MG PO SCH ×2 (09:23→23:28)
[2019-02-21] MEDS: Insulin LISPRO* 1 UNITS UNIT SUBCUT SCH (14:08)
[2019-02-22] MEDS: Dexamethasone TAB* 4 MG PO SCH (10:09)
[2019-02-22] MEDS ORDERED: Atropine 1% (ORAL/SL)* 15 ML BTL SL PRN (10:16)
--- NOTE | 2019-02-22 10:21 | PN ---
Progress Note - Progress Note Date of Service: 02/22/19 SOAP: Subjective: []Family at bedside. Minimally responsive. Daughter appropriately feels she can't be transferred. Medications: Acetaminophen (Tylenol Tab*) 650 mg PO Q4H PRN PRN Reason: MILD PAIN or TEMP > 100.4 Last Admin: 02/20/19 02:48 Dose: 650 mg Albuterol/Ipratropium (Duoneb (Albuterol 2.5 Mg/Ipratropium 0.5 Mg)) 1 neb INH Q4H PRN PRN Reason: SOB/WHEEZING Last Admin: 02/21/19 11:50 Dose: 1 neb Atropine Sulfate (Atropine 1% (Oral/Sl)*) 2 drop SL Q2H PRN PRN Reason: excessive secretions Lorazepam (Ativan Inj*) 1 mg IV PUSH Q4H PRN PRN Reason: ANXIETY Last Admin: 02/21/19 11:18 Dose: 1 mg Miscellaneous (Ativan Pyxis George) 1 ea N/A .ATIVAN IV GEORGE PRN PRN Reason: PYXIS GEORGE Morphine Sulfate (Morphine Oral Concentrate*) 10 mg SL Q2H PRN PRN Reason: shortness of breath Last Admin: 02/21/19 18:05 Dose: 10 mg Ondansetron HCl (Zofran Inj*) 4 mg IV Q6H PRN PRN Reason: NAUSEA Objective: [] Vital Signs Temp Pulse Resp BP Pulse Ox 97.3 F 129 16 120/75 95 02/21/19 07:00 02/21/19 11:50 02/21/19 23:25 02/21/19 07:00 02/21/19 11:50 Not responsive, resp. even with short periods of apnea Appears comfortable Assessment/Plan: []73 yo female with Metastatic SCLC s/p C1 Carbo/etoposide complicated by neutropenic fever and sepsis with unclear source as well as GIB secondary to steroid use and thrombocytopenia, and NSTEMI secondary to demand ischemia, however clinical decline despite interventions with family appropriately requesting transition to comfort measures yesterday. At this time she is unresponsive with a significant decline over the last 24 hours likely indicating a prognosis of 1-2 days at most, I have recommended against transfer home as she appears to be actively dying. DNR/DNI Comfort measures only
--- NOTE | 2019-02-22 11:21 | DS ---
- Discharge Summary Admission Date: 02/18/19 Discharge Date: 02/22/19 Discharge Diagnosis: 1. Sepsis secondary to febrile neutropenia: source unclear, transitioned to comfort measures 2. Metastatic Small Cell Lung Cancer: end stage, cause of Discharge Medications: NA Disposition: Hospital Course: Please see admission note for full H&P, however, briefly, Mrs. Sandoval is well known to our service due to her unfortunate diagnosis of Metastatic Small Cell Lung Cancer with [employer] mets. She received her first cycle of Carboplatin and Etoposide on 02/10/19. She was seen in [place] on 02/16/19 for gamma knife. Mrs. Sandoval presented to the ER on 02/18/19 with progressive fatigue, weakness, and lethargy. She was admitted with febrile neutropenia felt to be consistent with her treatment, however, at approximately noon she was found to be more lethargic and was transferred to the ICU for sepsis with concern for persistent hypotension. Fortunately she did not require pressor support and appeared to be improving over the next 24 hours with broad spectrum abx. and fluids. Unfortunately on 02/21 she had clinically declined and the family decided with her advanced disease to transition to comfort measures only. She has been comfortable and peacefully with her family at the bedside this AM, 02/22/19 , at 1030 AM.
== END 2019-02-22 10:30 | disposition expired | DRG 871 ==
LOC: ED 03:21 → MED 06:17 → ICU 17:24 → MED 02-19 09:18
PROVIDERS: ADMIT Hospitalist; ATTEND Internal Medicine Hematology & Oncology
PROC: 30233R1 Transfusion of Nonautologous Platelets into Peripheral Vein, Percutaneous Approach (ICD-10-PCS; principal; 2019-02-18)
DX: A41.9 Sepsis, unspecified organism (principal); D61.810 Antineoplastic chemotherapy induced pancytopenia; I21.A1 Myocardial infarction type 2; C34.90 Malignant neoplasm of unspecified part of unspecified bronchus or lung; C79.31 Secondary malignant neoplasm of brain; K92.2 Gastrointestinal hemorrhage, unspecified; T45.1X5A Adverse effect of antineoplastic and immunosuppressive drugs, initial encounter; R50.81 Fever presenting with conditions classified elsewhere; R19.7 Diarrhea, unspecified; Z66 Do not resuscitate; E87.6 Hypokalemia; E83.42 Hypomagnesemia; E83.51 Hypocalcemia; E78.5 Hyperlipidemia, unspecified; E11.649 Type 2 diabetes mellitus with hypoglycemia without coma; R65.20 Severe sepsis without septic shock; Z51.5 Encounter for palliative care; I10 Essential (primary) hypertension; Z92.3 Personal history of irradiation; Z92.21 Personal history of antineoplastic chemotherapy; Y92.9 Unspecified place or not applicable; Z85.3 Personal history of malignant neoplasm of breast; Z90.710 Acquired absence of both cervix and uterus; Z72.89 Other problems related to lifestyle; Z85.41 Personal history of malignant neoplasm of cervix uteri; Z72.0 Tobacco use
CPT/HCPCS: 36415; 71045; 80048; 80053; 81003; 81015; 82272; 83605; 83735; 84439; 84443; 84484; 85025; 85049; 85060; 85610; 86140; 86850; 86900; 86901; 87040; 87045; 87046; 87070; 87077; 87205; 87493; 87641; 87899; 93005; 94640; 96360; 96361; 99232; 99233; 99239; 99285; A9270-GY; J0610; J0692; J1720; J1940; J2060; J8540; P9035